=== PATIENT | female | born 1980 | race African-American/Black ===

== ENCOUNTER 2024-08-16 22:10 | Emergency (ER) | payer OTHER, SELFPAY ==
[2024-08-16 22:14] VITALS: BP 158/104; PULSE 81; RESP 20; TEMP 36.8; O2SAT 100
--- OUTSIDE RECORDS SUMMARY | 2024-08-16 22:14 | XMS_ITS ---
Author Organization [facility] Address [address] [place] [address] Care Team Providers Care Agricultural Education Teacher Name Role Phone Milton Montero Primary Care Provider REASON FOR VISIT reschedule appt Social History Sex Assigned At : Social History Observation Description Sex Assigned At Female Encounters Encounter Location Date Provider Diagnosis [address] [place] [address] 03/02/2023 Milton Montero Plan Of Treatment No Information Progress Notes * Deja TRAOREDOB:[birth year] (42 yo F)Acc No.[id number]:03/02/2023 Patient: Deja Mcdaniel :1980 A ge:42 Y S ex:Female Address:[address] [place] [address] * true * Date: Generated for Josei luis m/Cedric/eTransmitting on: 0 08/16/2024 10:14 PM TORNADO CHASER
--- OUTSIDE RECORDS SUMMARY | 2024-08-16 22:14 | XMS_ITS | CONTINUITY OF CARE DOCUMENT ---
Author Name parag tuttle Address Unknown Organization [facility] Address [address] [place] [address] Phone [phone] Care Team Providers Care Respiratory Medicine Physician Name Role Phone parag tuttle Unavailable Unavailable
--- OUTSIDE RECORDS SUMMARY | 2024-08-16 22:14 | XMS_ITS | Patient Health Summary ---
Author Organization [facility] Address [address] [place] [address] Care Team Providers Care Metallographer Name Role Phone Unavailable Primary Care Provider Unavailabl e Note from [facility],non-owned Affiliates and Associated Physician Practices is amultiple site organization consisting of ambulatory clinics and hospital sitesin [place], [place], [place] and [place]. This disclosure is being madepursuant to the Care Everywhere program and may not contain all information available regarding this patient. Last updated 18.[facility] Social History Tobacco Use Types Packs/Day Years Used Date Smoking Tobacco: Never Assessed Sex and Gender Information Value Date Recorded Sex Assigned at Not on file Gender Identity Not on file Sexual Orientation Not on file
--- OUTSIDE RECORDS SUMMARY | 2024-08-16 22:14 | XMS_ITS | Patient Health Record ---
Author Organization [facility] Address [address] [place] [address] Care Team Providers Care Hand Candle Molder Name Role Phone Milton Montero Primary Care Provider Allergies No Known Allergies Reason For Referral No Information Medications Medication SIG (Take, Route, Fr equency, Duration) Notes Start Date End Date Status OLANZapine 15 MG 0.5 tablet Twice a day for 30 days Active Mirtazapine 15 MG 1 tablet at bedtime Orally Once a day for 30 days 02/09/2023 Active Social History Tobacco Use: Social History Observation Description Date Details (start date - stop date) Current Smoker NA - NA Sex Assigned At : Social History Observation Description Sex Assigned At Female Dont use, Tobacco Use/Smoking Question Answer Notes Are you a current every day smoker Additional Findings: Tobacco User Light cigarett e smoker ((1-9 cigs/day) Problems Problem Type SNOMED Code ICD Code Onset Dates Problem Status W/U Status Risk Notes Problem Anxiety (22712998) Anxiety (F41.9) Active confirmed Problem Severe recurrent major depression without psychotic features (77409764) Major depressive disorder, recurrent episode, severe (F33.2) Active confirmed Plan Of Treatment No Information Insurance Providers Payer Name Payer Address Payer Phone Subscriber Number Group Number Insured Name Patient Relationship to Insured Coverage Start Date Coverage End Date [employer] [address] [place] [address] [id number] Deja Traore Self - patient is the insured 3 [employer] [address] [place] [address] [id number] Deja Traore Self - patient is the insured 3 Medical (General) History Surgical History Surgery Date(Month/Year) Right knee 05/2021 Right ankle 05/2021 Left hip 05/2021 Right femur 05/2021 bowel surgery 05/2021 Hospitalization History Reason Date(Month/Year) Surgeries 05/2021
--- OUTSIDE RECORDS SUMMARY | 2024-08-16 22:14 | XMS_ITS | Data Portability ---
Author Organization [facility] Address [address] [place] [address] Assessment Encounter Date Assessment Date Assessment LastModified by Organization Details LastModified Time 05/10/2024 05/10/2024 Annual gynecological exam performed. Patient will come back in a year unless there are new symptoms. Not available 05/10/2024 14:47:23 Plan of Treatment Reminders Order Date Submit Date Provider Last Modified By Organization Details Last Modified Time Details Appointments None recorded. Lab hbcab (hepatitis B core Ab) igm, serum 2023 [facility] (Lab), [address] [place], [address], 4 04:04:15 HBsAg (hepatitis B surface Ag), serum 2023 [facility] (Lab), [address] [place], [address], 4 04:04:15 hepatitis C virus Ab, serum 2023 [facility] (Lab), [address] [place], [address], 4 04:04:16 HIV 1+2 AB + HIV 1 p24 Ag, qualitative immunoassay , serum 2023 [facility] (Lab), [address] [place], [address], 4 04:04:16 RPR (rapid plasma reagin), serum 2023 [facility] (Lab), [address], [place], [address], 4 04:04:16 hormone panel, serum or plasma 2023 [facility] (Lab), [address], [place], [address], 4 04:04:16 CMP, serum or plasma 2023 [facility] (Lab), [address], [place], [address], 4 04:04:14 CBC w/ auto diff 2023 [facility] (Lab), [address], [place], [address], 4 04:04:14 lipid panel, blood 2023 [facility] (Lab), [address], [place], [address], 4 04:04:15 HbA1c (hemoglobin A1c), blood 2023 [facility] (Lab), [address], [place], [address], 4 04:04:15 25-hydroxyv itamin D2 + 25-hydroxyv itamin D3, QN, serum or plasma 2023 [facility] (Lab), [address], [place], [address], 4 04:04:15 TSH, serum or plasma 2023 024 [facility] (Lab), [address], [place], [address], 4 04:04:15 Referral None recorded. Procedures None recorded. Surgeries None recorded. Imaging None recorded. Medication Orders None recorded. Patient TargetsNo targets recorded. Patient InstructionsNo instructions recorded. Reason for Referral None Reported. Results Created Date Observation Date Name Description Value Unit Range Abnormal Flag Note LastModifiedBy Organization Detail LastModifiedTime 05/10/20 24 05/10/2024 IMAGE GUIDE D PAP AND HPV REGAR DLESS image guided Pap, HPV regardless of Pap result SEE RESULT S BELOW CASE REPOR T: Cytol ogy Gynec ologi yun Repor t Case: [id number] [address] penelope Provi aniceto: Julia Mcbride, INVESTMENT PROFESSIONAL Colle cted: 05/10 1604 Order ing Locat ion: [place] [facility] Recei tyesha: 05/11 1112 First Scree n: Adiel Whitaker, CT Rescr een: Magui Chamorro Speci men: Apolinar patten Pap - Image d, Cervi x STATE MENT OF ADEQU ACY: UNSAT ISFAC TORY SPECI MEN ----- ----- ----- ----- ----- ----- ----- ----- ----- ----- ----- ----- ----- ----- ----- ----- ----- ---- FINAL DIAGN OSIS: Unsat isfac tory for evalu ation . Inade quate squam ous epith elial compo nent for diagn osis; speci men consi sts of predo minan tly anucl eated squam es. Shift in shanika sugge stive of bacte rial vagin osis. Elect av ham d by Magui Chamorro on 2023 at 5:59 PM ----- ----- ----- ----- ----- ----- ----- ----- ----- ----- ----- ----- ----- ----- ----- ----- ----- ---- HPV RESUL TS: HPV mRNA E6/E7 : No HPV mRNA Detec jhonathan NOTE: This high risk HPV mRNA assay detec ts fourt een high- risk HPV types (16, 18, 31, 33, 35, 39, 45, 51, 52, 56, 58, 59, 66, 68) witho ut diffe renti ation . COMME NT: Slide scree trevor shaia lly due to rejec tion by the Thinp rep Imagi ng Syste m. CLINI YUN INFOR MATIO N: Menst rual Statu s: LMP (if appli cable ): Clini yun Histo ry/Pr eviou s Pap: Type of Neopl scooter (if appli cable ): Signi fican t Clini yun Findi ngs: Other Histo ry: Hormo corinna (if appli cable ): Not Available [facility] (Lab) [address], [place], [address], 05/23/2024 19:03:14 Result Notes None recorded. Procedures Surgical History Date Name Laterality Status Provider Name and Address Organization Details Recorded Time 2 Date of Last Pap Smear completed [facility] 05/10/2024 14:51:28 0 termination of completed [facility] 05/10/2024 14:59:49 Imaging Results None recorded. Procedure Notes None recorded. Medical Equipment None Reported. Allergies No known drug allergies Medications Name Sig Start Date Stop Date Status Note LastModified by Organization Details LastModified Time hydrocodone 5 mg-acetaminop hen 325 mg tablet TAKE 1 TABLET BY MOUTH EVERY 6 HOURS NEEDED FOR PAIN 05/10 completed Not Available Not Available Not Available prednisone 20 mg tablet active Not Available Not Available No t Available metronidazole 500 mg tablet Take 1 tablet every 12 hours by oral route for 7 days. active Not Available Not Available No t Available naproxen 500 mg tablet TAKE 1 TABLET BY MOUTH TWICE DAILY WITH FOOD active Not Available Not Available No t Available Vitals Date Recorded Body height Body mass index (BMI) Body weight Systolic blood pressure Diastolic blood pressure Systolic blood pressure Diastolic blood pressure Provider Name and Address Organization Details Last Updated DateTime 162.56 cm 16.1 kg/m2 22102.6 8 g 142 mm[Hg] 100 mm[Hg] 142 mm[Hg] 98 mm[Hg] Carli Logan [facility] 15:15:57 Social History Question Answer Notes LastModified by Organizat ion Details LastModified Time Tobacco Smoking Status Current Every Day Smoker Carli Cardozaer null, [facility] 05/10/2024 14:57:42 What Is Your Level Of Alcohol Consumption? Occasional Information not available 05/10/2024 Are You Blind Or Do You Have Difficulty Seeing? No Information not available 05/10/2024 What Is Your Level Of Caffeine Consumption? Occasional Information not available 05/10/2024 In The 14 Days Before Symptom Onset, Have You Had Close Contact With A Laboratory-confir med COVID-19 While That Case Was Ill? No Information not available 05/10/2024 In The 14 Days Before Symptom Onset, Have You Had Close Contact With A Person Who Is Under Investigation For COVID-19 While That Person Was Ill? No Information not available 05/10/2024 Have You Been To An Area Known To Be High Risk For COVID-19? No Information not available 05/10/2024 Are You Currently Employed? Yes Information not available 05/10/2024 Are You Deaf Or Do You Have Serious Difficulty Hearing? No Information not available 05/10/2024 What Type Of Diet Are You Following? REGULAR Information not available 05/10/2024 What Is The Highest Grade Or Level Of School You Have Completed Or The Highest Degree You Have Received? [id number] Information not available 05/10/2024 What Is Your Occupation? [employer] Information not available 05/10/2024 Are There Any Guns Present In Your Home? No Information not available 05/10/2024 Do You Use Protection During Sex? Usually Information not available 05/10/2024 Do You Use Your Seat Belt Or Car Seat Routinely? Yes Information not available 05/10/2024 Are You Sexually Active? Yes Information not available 05/10/2024 Do You Have Smoke And Carbon Monoxide Detectors In Your Home? Yes Information not available 05/10/2024 Do You Feel Stressed (tense, Restless, Nervous, Or Anxious, Or Unable To Sleep At Night)? [id number] Information not available 05/10/2024 Do You Use Any Illicit Or Recreational Drugs? No Information not available 05/10/2024 Do You Use Sunscreen Routinely? No Information not available 05/10/2024 Sex: Unknown Functional Status Question Answer Note LastModified by Organizat ion Details LastModified Time Do you have difficulty walking or climbing stairs? No Information not available 05/10/2024 Are you able to walk? YESWOREST Information not available 05/10/2024 Are you able to care for yourself? Yes Information not available 05/10/2024 Do you have difficulty dressing or bathing? No Information not available 05/10/2024 What is your exercise level? Occasional Information not available 05/10/2024 Mental Status None recorded. Family History Relationship Description Onset Age of this Age Resolved Age Notes LastModified by Organization Details LastModified Time Maternal Grandmother Neoplasm of ovary Not available 2023 14:57:12 Mother Hypertensive disorder Not available 2023 14:57:24 Medical History Condition Response Allergies (Food, seasonal, environmental ) N Other N Drug/Latex Allergies/Reactions N Breast Cancer N Blood Transfusion N Lung Disease N Dermatologic Disorders N Defects or Inherited Disease N Breast Problem N Gestational Diabetes N Hematologic disorders N Anesthesia Complications N History of STI N Deep Vein Thrombosis N Polycystic ovary syndrome N Anxiety Disorder N Autoimmune disease N Arthritis N Polyps N Infertility N History of abnormal pap N Acid Reflux (GERD) N Cancer N Varicosities N Stroke N Neurologic/Epilepsy N Endometriosis N High Cholesterol N Headaches N Fibromyalgia N Kidney Disease N Heart Problems N Thyroid Problems N Kidney or Bladder Problems N GI Problems N Eating Disorder N Anemia N Art (IVF or FET) N Psychiatric Illness N Ovarian Cancer N Diabetes N Pulmonary (TB, Asthma) N Hepatitis/Liver Disease N No Past Medical History N Eczema N Urinary Tract Infection N Abuse/Domestic Violence N Asthma N Trauma/Violence N Depression/ depression N Heart Disease N Pre-Eclampsia N Hypertension Y Osteoporosis N Thrombophilias N Gynecological History Statement/Question Response Abnormal Pap N Date of Last Mammogram Flow Moderate Date of LMP 12/09/2023 On BCP's at Conception? N Was last menstrual period normal N STIs/STDs N HPV Vaccine N Duration of Flow (days) 7 Current Control Method Condoms Age at First Child 18 Are cycles usually normal Y Frequency of Cycle (Q days) Sexually Active? Y Menses Monthly N Age of first menstrual cycle 14 Date of Last Pap Smear 03/15/2022 Sexual Problems? N Desired Control Method Condoms LMP Definite Obstetrics History GPAL:G 4 P 3 0 1 3 Type Value Full Term 3 Induced 1 Living 3 Total 4 Past Encounters Encounter ID Performer Location Encounter Start Date Encounter Closed Date Diagnosis/Indication Diagnosis SNOMED-CT Code Diagnosis ICD10 Code Diagnosis Note [id number] GRISELDA Chávez [facility] [address] [address] 05/10/2024 14:27:38 05/10/2024 15:33:41 Gynecologic examination 12164325 Z01.419 WWEB - condomsPap - updatedSTI screen -gc/ct/tri ch testing added to pap, HIV/Hep B&C/Syphil is testing ordered per pt requestMam mogram - order givenColon cancer screening - n/aRoutine labs - orderedRTC in 1 yr or sooner if needed BP elevated, no symptoms. Encouraged to est care with PCP for management , ED precaution s discussed. Suggested Calcium with Vitamin D daily. Patient advised to get an annual flu shot in the fall and she could obtain at local pharmacy. Also to obtain TDap vaccinatio n if you have not had one in the last 10 years. Recommend yearly mammograms . Encouraged monthly self breast exams. Encourage safe sexual practices, to use condoms and limit partners if not already in a monogamous relationsh ip. Engage in regular exercise. Avoid tobacco and illicit drugs. This lifestyle behavior pattern will lead to less health conditions and longer life span. If BMI greater than 25 dietary consult advised. All questions have been answered. Adult [facility] examination 793221714 Z00.00 Venereal d isease screening 568011742 Z11.3 Sexually t ransmitted infectious disease 2166517 A64 Perimenopausal state 910 2489672 42442 Z78.0 Discussed perimenopa uselabs orderedman agement options briefly discussedw ill obtain labs and RTC for f/u appointmen t Health Concerns Section Related Observation LastModified by Organization Detai ls LastModified Time None Recorded Concern Status LastModified by Organization Details LastModified Time None Recorded Advance Directives Directive None Recorded Payers Encounter Date Sequence Insurance Name Policy Number Policy Story Covered Member ID Story Member ID Guarantor Name 05/10/2024 1 [facility] (MEDICAID HMO) [id number] Deja Traore [id number] Deja Traore Notes Date Note Type Note Provider Name and Address Organization Details Recorded Time 05/10/2024 text/html Annual GYNReport ed bypatient.Menstrua l cycle:Perimenopaus al Urinary symptoms:No hematuria; No incontinence Vulva:No genital lesion Vagina:Normal vaginal discharge Breast:No breast pain; No breast lump; No nipple discharge Current Contraception:Sati sfied with current contraception; Condoms Sexual complaints:No sexual complaints; No pain during intercourse; Normal libido Menopausal Symptoms:No menopausal symptoms; Normal vaginal lubrication Psychological symptoms:No depression; No anxiety; No PMDD Preventive measures:Encourage self breast examination; Encourage regular exercise; Encourage no tobacco use; Encourage regular mammograms starting age 42Notes:43yo wweBC - condomslast pap 03/2022 - normal per ptno h/o abnormal papsLMP 11/2023, previous to that 06/2023. Started skipping months 2 yrs ago. Hot flashes, night sweats, trouble sleeping for the past 3 months tobacco smokerno mammogram hxh/o HTN, does not have a PCP GRISELDA Chávez [address], [place], [address], [place] [facility] 05/10/2024 15:23:29 OBGyn Episode Ob Episode Information Episode Created Date Number of Fetuses Patient Bloodtype Patient rh Status Prepregnancy Weight lbs Domestic Partner Domestic Partner Phone Father Name Building Maintenance Superintendent Status 05/10/20 24 1 CLOSED Fetus Data First Name Last Name Admitted to NICU Weight (g) Sex Living Outcome Pediatric Complications Fetus ID Race Codes Race Delivery Type 2267.96 F Full Term [id number] Vaginal Delivery Ghulam Calculation Initial Ghulam Date Initial Exam Date Initial Exam Provider Initial Ultrasound Date Last Menstrual Period Date Ultra Sound Weeks Gestation 0 Eighteen To Twenty Week Ghulam Update Ultra Sound Date Fundal Height At Umbil Quickening Date Ultra Sound Latest Weeks Gestation Final Ghulam Confirmed By Final Ghulam Confirmed Date Final Ghulam Date Ultra Sound Latest Days Gestation 0 0 Menstrual History Last Menstrual Date Menses Monthly On Bcp Conception Prior Menses Frequency Hcg Plus Date Menarche Onset Age Delivery Information Delivery Date Delivery Type Labor Anesthesia Weeks Gestation Incision Type Labor Labor Length Hrs Delivered By Post Complications Tubal Sterilization Discharge Date Comments 0 Discharge Information Feeding Method Contraceptive Method Maternal HG B and HCT Levels Ob Episode Information Episode Created Date Number of Fetuses Patient Bloodtype Patient rh Status Prepregnancy Weight lbs Domestic Partner Domestic Partner Phone Father Name Building Maintenance Superintendent Status 05/10/20 24 1 CLOSED Fetus Data First Name Last Name Admitted to NICU Weight (g) Sex Living Outcome Pediatric Complications Fetus ID Race Codes Race Delivery Type 2267.96 F Full Term [id number] Vaginal Delivery Ghulam Calculation Initial Ghulam Date Initial Exam Date Initial Exam Provider Initial Ultrasound Date Last Menstrual Period Date Ultra Sound Weeks Gestation 0 Eighteen To Twenty Week Ghulam Update Ultra Sound Date Fundal Height At Umbil Quickening Date Ultra Sound Latest Weeks Gestation Final Ghulam Confirmed By Final Ghulam Confirmed Date Final Ghulam Date Ultra Sound Latest Days Gestation 0 0 Menstrual History Last Menstrual Date Menses Monthly On Bcp Conception Prior Menses Frequency Hcg Plus Date Menarche Onset Age Delivery Information Delivery Date Delivery Type Labor Anesthesia Weeks Gestation Incision Type Labor Labor Length Hrs Delivered By Post Complications Tubal Sterilization Discharge Date Comments 5 Discharge Information Feeding Method Contraceptive Method Maternal HG B and HCT Levels Ob Episode Information Episode Created Date Number of Fetuses Patient Bloodtype Patient rh Status Prepregnancy Weight lbs Domestic Partner Domestic Partner Phone Father Name Building Maintenance Superintendent Status 05/10/20 24 1 CLOSED Fetus Data First Name Last Name Admitted to NICU Weight (g) Sex Living Outcome Pediatric Complications Fetus ID Race Codes Race Delivery Type 2267.96 M Full Term [id number] Vaginal Delivery Ghulam Calculation Initial Ghulam Date Initial Exam Date Initial Exam Provider Initial Ultrasound Date Last Menstrual Period Date Ultra Sound Weeks Gestation 0 Eighteen To Twenty Week Ghulam Update Ultra Sound Date Fundal Height At Umbil Quickening Date Ultra Sound Latest Weeks Gestation Final Ghulam Confirmed By Final Ghulam Confirmed Date Final Ghulam Date Ultra Sound Latest Days Gestation 0 0 Menstrual History Last Menstrual Date Menses Monthly On Bcp Conception Prior Menses Frequency Hcg Plus Date Menarche Onset Age Delivery Information Delivery Date Delivery Type Labor Anesthesia Weeks Gestation Incision Type Labor Labor Length Hrs Delivered By Post Complications Tubal Sterilization Discharge Date Comments 6 Discharge Information Feeding Method Contraceptive Method Maternal HG B and HCT Levels Ob Episode Information Episode Created Date Number of Fetuses Patient Bloodtype Patient rh Status Prepregnancy Weight lbs Domestic Partner Domestic Partner Phone Father Name Building Maintenance Superintendent Status 05/10/20 24 1 CLOSED Fetus Data First Name Last Name Admitted to NICU Weight (g) Sex Living Outcome Pediatric Complications Fetus ID Race Codes Race Delivery Type , Induced [id number] Ghulam Calculation Initial Ghulam Date Initial Exam Date Initial Exam Provider Initial Ultrasound Date Last Menstrual Period Date Ultra Sound Weeks Gestation 0 Eighteen To Twenty Week Ghulam Update Ultra Sound Date Fundal Height At Umbil Quickening Date Ultra Sound Latest Weeks Gestation Final Ghulam Confirmed By Final Ghulam Confirmed Date Final Ghulam Date Ultra Sound Latest Days Gestation 0 0 Menstrual History Last Menstrual Date Menses Monthly On Bcp Conception Prior Menses Frequency Hcg Plus Date Menarche Onset Age Delivery Information Delivery Date Delivery Type Labor Anesthesia Weeks Gestation Incision Type Labor Labor Length Hrs Delivered By Post Complications Tubal Sterilization Discharge Date Comments 0 Discharge Information Feeding Method Contraceptive Method Maternal HG B and HCT Levels
--- OUTSIDE RECORDS SUMMARY | 2024-08-16 22:14 | XMS_ITS ---
Author Organization [facility] Address [address] [place] [address] Care Team Providers Care Lehr Cutter Name Role Phone Milton Montero Primary Care Provider REASON FOR VISIT 3 Week F/U Social History Sex Assigned At : Social History Observation Description Sex Assigned At Female Encounters Encounter Location Date Provider Diagnosis [address] [address] 03/02/2023 Milton Montero Plan Of Treatment No Information Progress Notes * Deja TRAOREDOB:[birth year] (43 yo F)Acc No.[id number]:03/02/2023 UNLOCKED PROGRESS NOTE Patient: Deja GONZALEZ Provider: Young Montero DNP, PMHNP-BC :1980 A ge:42 Y S ex:Female Date:03/02/2023 [address] [facility] Subjective: * Chief Complaints: * 1 . 3 Week F/U. * Medical History: Objective: * Vitals: Assessment: Plan: * Treatment: * * Electronic signature of Tobi Montero APRN, [id number] on 08/16/2024 at 10:13 PM EARLY YEARS TEACHER Sign off status: Pending * Provider: Young Montero DNP, PMHNP-BC Date: 0 03/02/2023 Generated for Constance asencio/Cedric/eTransmitting on: 0 08/16/2024 10:13 PM EARLY YEARS TEACHER
--- OUTSIDE RECORDS SUMMARY | 2024-08-16 22:14 | XMS_ITS | Referral Summary ---
Author Organization [facility] Address [address] [place] [address] Care Team Providers Care Ocean Fishing Guide Name Role Phone Unavailable Primary Care Provider Unavailabl e Source Comments [facility],non-owned Affiliates and Associated Physician Practices is amultiple site organization consisting of ambulatory clinics and hospital sitesin [place], [place], [place] and [place]. This disclosure is being madepursuant to the Care Everywhere program and may not contain all information available regarding this patient. Last updated 18.[facility] Social History Tobacco Use Types Packs/Day Years Used Date Smoking Tobacco: Never Assessed Sex and Gender Information Value Date Recorded Sex Assigned at Not on file Gender Identity Not on file Sexual Orientation Not on file Plan of Treatment Not on file
--- OUTSIDE RECORDS SUMMARY | 2024-08-16 22:14 | XMS_ITS | Clinical Summary ---
Author Organization [facility] Address [address] [place] [address] Care Team Providers Care Real Estate Rental Agent Name Role Phone Unavailable Primary Care Provider Unavailabl e Source Comments [facility] [employer],non-owned Affiliates and Associated Physician Practices is amultiple site organization consisting of ambulatory clinics and hospital sitesin [place], [place], [place] and [place]. This disclosure is being madepursuant to the Care Everywhere program and may not contain all information available regarding this patient. Last updated 18.[facility] [employer] Social History Tobacco Use Types Packs/Day Years Used Date Smoking Tobacco: Never Assessed Sex and Gender Information Value Date Recorded Sex Assigned at Not on file Gender Identity Not on file Sexual Orientation Not on file Plan of Treatment Health Maintenance Due Date Last Done Comments LIPID TESTING 1982 MAMMOGRAM 1982 PAP SMEAR 1982 HIV SCREENING 1997 HEPATITIS C SCREENING 10/25/2000 DTAP/TDAP/TD VACCINES (1 - Tdap) 2001 HEPATITIS B VACCINE (1 of 3 - 19+ 3-dose series) 2001 COVID-19 VACCINE (2023-2 5 season) 2024 INFLUENZA VACCINE (#1) 2024 DEPRESSION SCREENING 06/15/2024 ZOSTER VACCINE (1 of 2) 2032 HIB VACCINE Aged Out No longer eligi ble based on patient's age to complete this topic HPV VACCINE Aged Out No longer eligi ble based on patient's age to complete this topic MENINGOCOCCAL (Group B) VACCINE Aged Out No longer eligible based on patient's age to complete this topic MENINGOCOCCAL VACCINE Aged Out No michael stalin eligible based on patient's age to complete this topic PNEUMOCOCCAL VACCINE Aged Out No long er eligible based on patient's age to complete this topic
--- NOTE | 2024-08-17 00:34 | PC.NURSE ---
no answer in waiting room for vital signs
--- OUTSIDE RECORDS SUMMARY | 2024-08-17 03:30 | XMS_ITS ---
Author Organization [facility] Address [address] [place] [address] Care Team Providers Care Carbon Cutter Name Role Phone Milton Montero Primary Care Provider REASON FOR VISIT 3 Week F/U Social History Sex Assigned At : Social History Observation Description Sex Assigned At Female Encounters Encounter Location Date Provider Diagnosis [address] [address] 03/02/2023 Milton Montero Plan Of Treatment No Information Progress Notes * Deja TRAOREDOB:[birth year] (43 yo F)Acc No.[id number]:03/02/2023 UNLOCKED PROGRESS NOTE Patient: Deja GONZALEZ Provider: Young Montero DNP, PMHNP-BC :1980 A ge:42 Y S ex:Female Date:03/02/2023 [address] [facility] Subjective: * Chief Complaints: * 1 . 3 Week F/U. * Medical History: Objective: * Vitals: Assessment: Plan: * Treatment: * * Electronic signature of Tobi Montero APRN, [id number] on 08/17/2024 at 03:30 AM APPAREL MERCHANDISER Sign off status: Pending * Provider: Young Montero DNP, PMHNP-BC Date: 0 03/02/2023 Generated for Josei luis m/Cedric/eTransmitting on: 0 08/17/2024 03:30 AM APPAREL MERCHANDISER
--- OUTSIDE RECORDS SUMMARY | 2024-08-17 03:31 | XMS_ITS | Clinical Summary ---
Author Organization [facility] Address [address] [place] [address] Care Team Providers Care Manager Clinical Pharmacy Name Role Phone Unavailable Primary Care Provider Unavailabl e Source Comments [facility] [employer],non-owned Affiliates and Associated Physician Practices is amultiple site organization consisting of ambulatory clinics and hospital sitesin [place], [place], [place]. This disclosure is being madepursuant to the Care Everywhere program and may not contain all information available regarding this patient. Last updated 18.[facility] [employer] Social History Tobacco Use Types Packs/Day Years [...]
--- OUTSIDE RECORDS SUMMARY | 2024-08-17 03:31 | XMS_ITS | CONTINUITY OF CARE DOCUMENT ---
Author Name parag tuttle Address Unknown Organization [facility] Address [address] [place] [address] Phone [phone] Care Team Providers Care Hand Baseball Sewer Name Role Phone parag tuttle Unavailable Unavailable
--- OUTSIDE RECORDS SUMMARY | 2024-08-17 03:31 | XMS_ITS | Patient Health Summary ---
Author Organization [facility] Address [address] [place] [address] Care Team Providers Care Ditch Repairer Name Role Phone Unavailable Primary Care Provider Unavailabl e Note from [facility],non-owned Affiliates and Associated Physician Practices is amultiple site organization consisting of ambulatory clinics and hospital sitesin [place], [place], [place] and [place]. This disclosure is being madepursuant to the Care Everywhere program and may not contain all information available regarding this patient. Last updated 18.[facility] Social History Tobacco Use Types Packs/Day Years Used Date Smoking Tobacco: Never Assessed Sex and Gender Information Value Date Recorded Sex Assigned at Not on file Gender Identity Not on file Sexual Orientation Not on file
--- OUTSIDE RECORDS SUMMARY | 2024-08-17 03:31 | XMS_ITS ---
Author Organization [facility] Address [address] [place] [address] Care Team Providers Care Museum Attendant Name Role Phone Milton Montero Primary Care Provider [phone] REASON FOR VISIT reschedule appt Social History Sex Assigned At : Social History Observation Description Sex Assigned At Female Encounters Encounter Location Date Provider Diagnosis [address] [place] [address] 03/02/2023 Milton Montero Plan Of Treatment No Information Progress Notes * Deja TRAOREDOB:[birth year] (42 yo F)Acc No.[id number]:03/02/2023 Patient: Deja Mcdaniel :1980 A ge:42 Y S ex:Female [address] [place] [address] * true * Date: Generated for Josei luis m/Falinseyg/eTransmitting on: 0 08/17/2024 03:31 AM CABLE STRETCHER AND TESTER
--- OUTSIDE RECORDS SUMMARY | 2024-08-17 03:31 | XMS_ITS | Referral Summary ---
Author Organization [facility] Address [address] [place] [address] Care Team Providers Care Director Of Estate Name Role Phone Unavailable Primary Care Provider Unavailabl e Source Comments [facility],non-owned Affiliates and Associated Physician Practices is amultiple site organization consisting of ambulatory clinics and hospital sitesin [place], [place], [place] and [place]. This disclosure is being madepursuant to the Care Everywhere program and may not contain all information available regarding this patient. Last updated 18.[facility] Social History Tobacco Use Types Packs/Day Years Used Date Smoking Tobacco: Never Assessed Sex and Gender Information Value Date Recorded Sex Assigned at Not on file Gender Identity Not on file Sexual Orientation Not on file Plan of Treatment Not on file
--- OUTSIDE RECORDS SUMMARY | 2024-08-17 03:31 | XMS_ITS | Patient Health Record ---
Author Organization [facility] Address [address] [place] [address] Care Team Providers Care Children'S Book Author Name Role Phone Milton Montero Primary Care [...] Status W/U Status Risk Notes Problem Anxiety (06942242) Anxiety (F41.9) Active confirmed Problem Severe recurrent major depression without psychotic features (62734054) Major depressive disorder, recurrent episode, severe (F33.2) Active confirmed Plan Of Treatment No Information Insurance Providers Payer Name Payer Address Payer Phone Subscriber Number Group Number Insured Name Patient Relationship to Insured Coverage Start Date Coverage End Date [employer] [address] [place] [address] [id number] Deja Traore Self - patient is the insured 3 [employer] [address] [place] [address] [id number] Deja Traore Self - patient is the insured 3 Medical (General) History Surgical History Surgery Date(Month/Year) Right knee 05/2021 Right ankle 05/2021 Left hip 05/2021 Right femur 05/2021 bowel surgery 05/2021 Hospitalization History Reason Date(Month/Year) Surgeries 05/2021
== END 2024-08-17 00:34 | disposition left against medical advice (07) ==
LOC: ANHED 08-17 03:29
DX: R20.2 Paresthesia of skin (principal)
CPT/HCPCS: 99199